=== PATIENT | female | born 1960 | race Caucasian/White ===

== ENCOUNTER 2016-12-18 15:48 | Emergency (ER) | payer OTHER ==
[~2016-12-18 15:48] MED LIST: ESCITALOPRAM OX20 MG PO; KLONOPIN0.5 MG PO; NIZORAL PO; OMEPRAZOLE20 M1 PO
== END 2016-12-18 16:40 | disposition home or self-care (01) ==
LOC: CFTX 15:48
DX: S05.02XA Injury of conjunctiva and corneal abrasion without foreign body, left eye, initial encounter (principal); S05.01XA Injury of conjunctiva and corneal abrasion without foreign body, right eye, initial encounter; Z79.899 Other long term (current) drug therapy; Y93.89 Activity, other specified
CPT/HCPCS: 99283